=== PATIENT | male | born 1960 | race Caucasian/White ===

== ENCOUNTER 2018-11-07 10:42 | Day surgery (SDC) | payer BC ==
[~2018-11-07 10:42] MED LIST: Acetaminophen TAB* 325 MG PO PRN; Cyclopentolate 1% OPTH.SOL* 2 ML BTL ONE; Ketorolac 0.5% OPHTH (NF) 0.5 % 5 ML BTL ONE; Lidocaine 1%* 5 ML VIAL ONE; Neomycin/Polymy/Dex OPHTH.OIN* 3.5 GM ONE; Phenylephrine 2.5% OPTH.SOL* 2 ML BTL ONE; Povidone Iodine 5% OPTH* 30 ML BTL ONE; Tetracaine 0.5% OPTH.SOL 4 ML* 1 DROP BTL ONE; Tropicamide 1% OPTH.SOL* BTL ONE; acetaZOLAMIDE TAB* 250 MG ONE
[2018-11-07] MEDS ORDERED: Midazolam* 1 MG/ML 2 ML VIAL (2 MG) ONE ×2 (13:38→13:43)
[2018-11-07 14:18] VITALS: BP 134/88
--- NOTE | 2018-11-07 15:55 | OP ---
DATE OF OPERATION: 11/07/2018 - [facility] DATE OF : 1960. SURGEON: John Moya MD ANESTHESIA: Monitored anesthesia care. PREOPERATIVE DIAGNOSIS: Cataract, left eye. POSTOPERATIVE DIAGNOSIS: Cataract, left eye. OPERATIVE PROCEDURE: Extracapsular cataract extraction of the left eye with intraocular lens implant. IMPLANT: SN60WF 22.5 diopter lens to the left eye. COMPLICATIONS: None. DESCRIPTION OF PROCEDURE: The patient was given phenylephrine 2.5 % and cyclopentolate 1% eye drops to the operative eye in the preoperative area. The patient was taken to the operating room where a time-out was taken to identify the correct patient, site, and side of surgery. The patient's left eye was prepped and draped in the usual sterile fashion with 5% Betadine. A second time- out was taken to verify the correct patient, side, and site of surgery, as well as the correct lens implant. A lid speculum was placed to the left eye. A 1mm paracentesis blade was used to make a clear corneal incision. Preservative-free 1% lidocaine was injected into the anterior chamber. DisCoVisc was then injected into the anterior chamber. A 2.75 mm keratome blade was used to make a triplanar incision. A cystotome initiated a capsulorrhexis, which was completed with Utrata forceps in a continuous and curvilinear manner. Hydrodissection of the lens was performed with BSS on a cannula. The lens could be spun in a capsular bag. The phacoemulsification handpiece was used with a divide-and- conquer technique to remove the nucleus. The I/A handpiece then removed the residual cortical lens material. DisCoVisc was injected to inflate the capsular bag. The planned SN60WF 22.5 diopter lens was injected into the capsular bag. The residual DisCoVisc was removed from the eye with the I/A handpiece. The corneal incisions were hydrated and no leaks occurred at physiologic pressure around 20 mmHg per palpation. The lid speculum was removed and drapes were removed. Maxitrol ointment was placed to the surface of the operative eye. An adhesive patch and shield was then placed on the operative eye. The patient was taken to the postoperative area in stable condition. [id number]/[facility] #: [id number] [facility]
== END 2018-11-07 14:28 | disposition home or self-care (01) ==
LOC: OREAST 10:42
PROVIDERS: ATTEND Student in an Organized Health Care Education/Training Program
DX: H25.812 Combined forms of age-related cataract, left eye (principal); I10 Essential (primary) hypertension; E78.2 Mixed hyperlipidemia; K21.9 Gastro-esophageal reflux disease without esophagitis; M19.042 Primary osteoarthritis, left hand; M32.9 Systemic lupus erythematosus, unspecified; Z79.899 Other long term (current) drug therapy; Z96.1 Presence of intraocular lens
CPT/HCPCS: A9270-GY; J2250; V2632

== ENCOUNTER 2019-11-28 06:12 | Inpatient (IN) | payer BC ==
--- NOTE | 2019-11-17 14:13 | HP ---
HISTORY AND PHYSICAL: DATE OF ADMISSION/SURGERY: 11/28/19 DATE OF OFFICE VISIT: 11/17/19 SURGEON: Mariposa Hurd MD.* (DICTATED BY JESSENIA CAMPOS) PROCEDURE: Left total hip arthroplasty. CHIEF COMPLAINT: Left hip pain. HISTORY OF PRESENT ILLNESS: Mr. Mcfarlane is a 58-year-old gentleman with severe end-stage osteoarthritis of the left hip. He has failed conservative treatment and elected to proceed with a left total hip arthroplasty. PAST MEDICAL HISTORY: Hypertension, high cholesterol, gout, and sleep apnea. PAST SURGICAL HISTORY: [place] teeth extraction and cataract removal. CURRENT MEDICATIONS: 1. Fenofibrate 145 mg daily. 2. Magnesium oxide. 3. Benicar/hydrochlorothiazide 20/12.5 mg half a tab every day. 4. Amlodipine 5 mg daily. 5. Metoprolol 50 mg a day. 6. Spironolactone 25 mg half tab daily. 7. Uloric 80 mg a day. 8. Fish oil. 9. Multivitamin. 10. Glucosamine chondroitin 11. Famotidine 20 mg a day. ALLERGIES: No known drug allergies. FAMILY HISTORY: Coronary artery disease. SOCIAL HISTORY: He is a 58-year-old gentleman, lives with his . He does not smoke or use drug or alcohol. REVIEW OF SYSTEMS: A complete 14-point review of systems was reviewed with the patient and was all negative and noncontributory. He denies a history of DVT, PE, hepatitis, HIV, or anesthesia problems. PHYSICAL EXAMINATION GENERAL: He is well developed, well nourished, in no acute distress. VITAL SIGNS: He stands 69 inches tall, weighs 257 pounds. His blood pressure is 132/68, his heart rate is 86. HEENT: Normocephalic, atraumatic. NECK: Supple. No palpable lymph nodes. PULMONARY: Lungs are clear to auscultation bilaterally. CARDIO: Regular rate and rhythm. Strong S1, S2. ABDOMEN: Soft, nontender, nondistended. MUSCULOSKELETAL: Left lower extremity: The skin is intact. There are no open wounds or abrasions. He walks with an antalgic-type gait favoring his left hip. He has decreased internal and external rotation of the left hip. He is able to dorsiflex and plantarflex. He has a 2+ dorsalis pedis pulse and intact sensation. NEUROLOGICAL: He is alert and oriented x3. ASSESSMENT AND PLAN: Mr. Mcfarlane is a 58-year-old gentleman with severe end- stage osteoarthritis of the left hip. He has failed conservative treatment and elected to proceed with a left total hip arthroplasty. The surgery is scheduled for 11/28/[address] Hurd. The risks and benefits of the surgery were reviewed with the patient today and all of his questions were answered. He will follow up with Dr. Hurd 2 weeks after the surgery. JESSENIA CAMPOS [id number]/[facility] #: [id number] [facility]
[~2019-11-28 06:12] MED LIST changes: +Acetaminophen TAB* 325 MG PO ONE; -Acetaminophen TAB* 325 MG PO PRN; +Buffered Lidocaine 1% SYRIN* 1 ML/SYRINGE INTRADERM ONE; -Cyclopentolate 1% OPTH.SOL* 2 ML BTL ONE; +Gabapentin CAP(*) 300 MG PO ONE; -Ketorolac 0.5% OPHTH (NF) 0.5 % 5 ML BTL ONE; +Lactated Ringers 1000 ML Bag* 1,000 ML IV SCH; -Lidocaine 1%* 5 ML VIAL ONE; -Neomycin/Polymy/Dex OPHTH.OIN* 3.5 GM ONE; -Phenylephrine 2.5% OPTH.SOL* 2 ML BTL ONE; -Povidone Iodine 5% OPTH* 30 ML BTL ONE; -Tetracaine 0.5% OPTH.SOL 4 ML* 1 DROP BTL ONE; -Tropicamide 1% OPTH.SOL* BTL ONE; -acetaZOLAMIDE TAB* 250 MG ONE; +celeCOXIB CAP* 200 MG PO ONE
--- OUTSIDE RECORDS SUMMARY | 2019-11-28 06:16 | XMS REPORT | Continuity of Care Document ---
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 Onset: region and thigh Social History Type Date Description Comments Sex Unknown ETOH Use Never used alcohol Tobacco Use Start: Unknown Patient has never smoked Smoking Status Reviewed: 11/17/19 Patient has never smoked Allergies, Adverse Reactions, Alerts Description No Known Drug Allergies Medications Active Medications SIG Qnty Indications Ordering Provider Date Fenofibrate 1 tab by mouth Unknown 145mg Tablets every day Magox 400 1 tab by mouth Unknown 400(241.3mg) mg every day Tablets Benicar HCT 1/2 tab by mouth Unknown 20-12.5mg Tablets every day Amlodipine Besylate Take One Tablet Unknown 5mg By Mouth Every Tablets Day Metoprolol Succinate ER Take One Tablet Unknown 50mg By Mouth Every Tablets ER 24HR Day Spironolactone Take One Half Unknown 25mg Tablets Tablet By Mouth Once Daily Uloric 1 tab by mouth Unknown 80mg Tablets every day Fish Oil 1 tab by mouth Unknown 1000mg Capsules every morning One Daily For Men 50+ 1 tab by mouth Unknown Advanced once daily Men 50+ Tablets Glucosamine Chondroitin 1 tab by mouth Unknown 1500 Complex twice daily 1500Com Capsules Famotidine 1 tab by mouth Unknown 20mg Tablets daily Immunizations Description No Information Available Vital Signs Date Vital Result Comment 11/17/2019 1:11pm Height 69 inches 5'9" Weight 257.00 lb Heart Rate 86 /min BP Systolic 132 mmHg BP Diastolic 68 mmHg Respiratory Rate 16 /min Body Temperature 98.2 F Pain Level 7 O2 % BldC Oximetry 98 % BMI (Body Mass Index) 37.9 kg/m2 10/20/2019 1:28pm Height 69 inches 5'9" Weight 250.00 lb Heart Rate 87 /min BP Systolic Sitting 148 mmHg BP Diastolic Sitting 80 mmHg Respiratory Rate 16 /min Pain Level 10 O2 % BldC Oximetry 96 % BMI (Body Mass Index) 36.9 kg/m2 Results Description No Information Available Procedures Description No Information Available Medical Devices Description No Information Available Encounters Type Date Location Provider Dx Diagnosis Office Visit 10/20/2019 [facility] Mariposa Hurd M25.552 Pain in left hip 1:30p at [place] [facility] M16.12 Unilateral primary osteoarthritis, left hip Assessments Date Code Description Provider 11/17/2019 M25.552 Pain in left hip JESSENIA Martinez 11/17/2019 M16.12 Unilateral primary osteoarthritis, left hip JESSENIA Martinez 10/20/2019 M25.552 Pain in left hip Mariposa Hurd M.D. 10/20/2019 M16.12 Unilateral primary osteoarthritis, left hip Mariposa Hurd M.D. Plan of Treatment Future Appointment(s):12/12/2019 11:30 am - JESSENIA Martinez at [facility] at Dyflli0211/28/2019 4:30 pm - Marc Carvajal PA-C at [facility] at Knjwov2311/28/2019 4:30 pm - JESSENIA Martinez at [facility] at Fjkszf9611/28/2019 4:30 pm - Mariposa Hurd M.D. at [facility] at Gcbktw0111/17/2019 - July Bowen PAM25.552 Pain in left hipFollow up:Follow up: 2 weeks after yvpshggF93.12 Unilateral primary osteoarthritis, left hip Functional Status Description No Information Available Mental Status Description No Information Available Referrals Description No Information Available
--- OUTSIDE RECORDS SUMMARY | 2019-11-28 06:16 | XMS REPORT | Continuity of Care Document ---
:1960 Author Organization [facility] Care Team Providers Name Role Phone MONICA REED Admitting Physician MONICA REED Attending Physician Allergies and Intolerances No Known Drug Allergies Medications RxNorm Medication Dose Route Instructions Start End Date Status Date Azithromycin (Take 2 Active tablets po on day one then one tablet a day for the next 4 days.) 526580 benzonatate 200 MG Oral 200 mg oral orally every 8 Active Capsule hours as needed. (10 days) (as needed for cough) 302168 febuxostat 80 MG Oral 80 mg oral orally every day Active Tablet 944319 Hydrochlorothiazide 12.5 1 tab oral orally every day Active MG / Olmesartan medoxomil 40 MG Oral Tablet 844816 Hydroxychloroquine 200 mg oral orally 2 times Active Sulfate 200 MG Oral per day Tablet 030821 Metoprolol Tartrate 50 50 mg oral orally every day Active MG Oral Tablet 9143 Ranitidine 150 mg oral orally every day Active 9997 Spironolactone 12.5 mg oral orally every Active morning Medications At Time Of Discharge RxNorm Medication Dose Route Instructions Start End Date Status Date Azithromycin (Take 2 Active tablets po on day one then one tablet a day for the next 4 days.) 840540 benzonatate 200 MG Oral 200 mg oral orally every 8 Active Capsule hours as needed. (10 days) (as needed for cough) 243707 febuxostat 80 MG Oral 80 mg oral orally every day Active Tablet 574448 Hydrochlorothiazide 12.5 1 tab oral orally every day Active MG / Olmesartan medoxomil 40 MG Oral Tablet 863587 Hydroxychloroquine 200 mg oral orally 2 times Active Sulfate 200 MG Oral per day Tablet 556752 Metoprolol Tartrate 50 50 mg oral orally every day Active MG Oral Tablet 9143 Ranitidine 150 mg oral orally every day Active 9997 Spironolactone 12.5 mg oral orally every Active morning Problems Code Code System Problem Name Start Date End Date Status 44838790 SNOMED-CT Heart disease 2000 Active 93449232 SNOMED-CT Hypertensive disorder 2001 Active 82243556 SNOMED-CT Hypercholesterolemia 2000 Active Procedures No data in the system Results Laboratory Results Order: BASIC METABOLIC PANEL Specimen Source: Body Site: Legend: (G,H) = High, (GG,HH,CH,#H) = Above High Threshold, ( #,L) = Low, (##,CL,#L,LL) = Below Low Threshold, (C,CC,CA,#A,A) = Abnormal LOINC Test Result Flag Range Units Date 1SODIUM 139 136-145 mmol/L 10/06/2019 09:17 1POTASSIUM 4.4 3.5-5.2 mmol/L 10/06/2019 09:17 1CHLORIDE 105 100-108 mmol/L 10/06/2019 09:17 1CO2 25 21-32 mmol/L 10/06/2019 09:17 1GLUCOSE 91 70-100 mg/dL 10/06/2019 09:17 1BUN 39 H 7-21 mg/dL 10/06/2019 09:17 1CREATININE 1.2 0.6-1.3 mg/dL 10/06/2019 09:17 Interpretive Chelsie: 1Normal Kidney Function or Mild Disease - GFR >OR= 60 Chronic Kidney Disease - GFR 15-59 Renal Failure - GFR < 15 GFR not calculated on patients under 18 years of age. Calculated (estimated) GFR is based on the MDRD Study equation, which assumes a steady state for creatinine. Estimated GFR may not be appropriate for medication dosing. 1CALCIUM 10.0 8.5-10.8 mg/dL 10/06/2019 09:17 1GFR >60 10/06/2019 09:17 Performing Lab Footnotes:[facility] - [id number] - [address] [place] [address] STEPHANIE SANCHEZD1 Order: PSA Specimen Source: Body Site: Legend: (G,H) = High, (GG,HH,CH, #H) = Above High Threshold, (#,L) = Low, (##,CL,#L,LL) = Below Low Threshold, (C ,CC,CA,#A,A) = Abnormal LOINC Test Result Flag Range Units Date 1PSA 0.38 0.03-4.00 ng/mL 10/06/2019 09:17 Interpretive Chelsie: 1. [place] Alteration Worker Chemiluminescent Immunoassay Do NOT use interchangeably with other methods. NOT to be used as a Cancer Screening NOR as a guide in Disease Staging. Performing Lab Footnotes:[facility] - [id number] - [address] [place] [address] STEPHANIE SERRANOOMD1 Order: URIC ACID Specimen Source: Body Site: Legend: (G,H) = High, (GG, HH,CH,#H) = Above High Threshold, (#,L) = Low, (##,CL,#L,LL) = Below Low Threshold, (C,CC,CA,#A,A) = Abnormal LOINC Test Result Flag Range Units Date 1URIC ACID 6.2 2.6-7.2 mg/dL 10/06/2019 09:17 Performing Lab Footnotes:[facility] - [id number] - [address] [place] [address] STEPHANIE SERRANOOMRodrick Social History Code Code System Social History Description Dates Observed Observation 468978707 SNOMED CT Current Smoking Unknown if ever Status smoked UNK AdministrativeGender Sex Assigned At Unknown Vital Signs No data in the system Goals Section No data in the system Health Concerns No data in the systemEncounter Diagnosis Date Code Code System Diagnosis Status I10 ICD10 ESSENTIAL PRIMARY HYPERTENSION Active Advance Directives *RHIO - CONSENT IS YES Directive Type Effective Date Assessor Notes Supporting Document Name Address Phone No Directive Type 12/14/2016 Not Specified Not Specified Not Specified None No specified 10:59:27 AM Encounters Encounter Diagnosis Location Date ESSENTIAL PRIMARY HYPERTENSION [facility] 10/06/2019 Family History Patient has no knowledge of family history Functional Status No data in the system Immunizations Vaccine Code Code System Vaccine Name Date Status UTD PER PT Completed INFLUENZA- 2014 Completed Medical Equipment No data in the system Mental Status No data in the system Assessment and Plan Assessments No data in the systemPlan Of Treatment No data in the systemPending Tests No data in the system Hospital Discharge Instructions No data in the system Reason for Visit No data in the system
--- OUTSIDE RECORDS SUMMARY | 2019-11-28 06:16 | XMS REPORT | Continuity of Care Document ---
:1960 External Reference #:[id number] Author Name JESSENIA Martinez (transmitted by agent of provider Farideh Ramos) Address [address] [place] [address] Care Team Providers Name Role Phone Gilmer Sears MD - Internal Medicine Care Team Information Hospice Massage Therapist Problems Active Problems Provider Date Localized, primary osteoarthritis of the pelvic Mariposatanya Hurd M.D. Onset: region and thigh Social [...] BMI (Body Mass Index) 36.9 kg/m2 Results Test Acquired Date Facility Test Result H/L Range Note Urinalysis Profile 11/17/2019 [facility] Urine Color Yellow [address] [place] [address] [phone] Urine Appearance Clear Urine Specific [place] 1.014 Normal 1.010-1.030 Urine pH 6.0 Normal 5-9 Urine Urobilinogen Negative Negative Urine Ketones Negative Negative Urine Protein Negative Negative Urine Leukocytes Negative Negative Urine Blood Negative Negative Urine Nitrite Negative Negative Urine Bilirubin Negative Negative Urine Glucose Negative Negative Inr/Protime 11/17/2019 [facility] Inr 1.23 High 0.82-1.[address] [place] [address] [phone] Laboratory test 11/17/2019 [facility] Partial 38.4 High 26.0- 38.[address] [address] Time PTT [phone] CBC Auto Diff 11/17/2019 [facility] White Blood 10.3 Normal 3.5-10.[address] Count 10^3/uL [place], [place] [address] [phone] Red Blood Count 4.40 10^6/uL Normal 4.18-5.48 Hemoglobin 14.8 g/dL Normal 14.0-18.0 Hematocrit 42 % Normal 42-52 Mean Corpuscular Volume 95 fL High 80-94 Mean Corpuscular Hemoglobin 34 pg High 27-31 Mean Corpuscular HGB Conc 35 g/dL Normal 31-36 Red Cell Distribution Width 14 % Normal 10-15 Platelet Count 218 10^3/uL Normal 150-450 Mean Platelet Volume 8.6 fL Normal 7.4-10.4 Abs Neutrophils 7.7 10^3/uL Normal 1.5-7.7 Abs Lymphocytes 1.9 10^3/uL Normal 1.0-4.8 Abs Monocytes 0.6 10^3/uL Normal 0-0.8 Abs Eosinophils 0.1 10^3/uL Normal 0-0.6 Abs Basophils 0.0 10^3/uL Normal 0-0.2 Abs Nucleated RBC 0.0 10^3/uL Granulocyte % 75.0 % Lymphocyte % 18.3 % Monocyte % 5.5 % Eosinophil % 0.8 % Basophil % 0.4 % Nucleated Red Blood Cells % 0.0 Comp Metabolic 11/17/2019 [facility] Sodium 138 mmol/L Normal 135-[address] [place] [address] [phone] Potassium 4.0 mmol/L Normal 3.5-5.0 Chloride 103 mmol/L Normal 101-111 Co2 Carbon Dioxide 25 mmol/L Normal 22-32 Anion Gap 10 mmol/L Normal 2-11 Glucose 81 mg/dL Normal 70-100 Blood Urea Nitrogen 44 mg/dL High 6-24 Creatinine 1.35 mg/dL High 0.67-1.17 BUN/Creatinine Ratio 32.6 High 8-20 Calcium 10.5 mg/dL High 8.6-10.3 Total Protein 8.0 g/dL Normal 6.4-8.9 Albumin 4.9 g/dL Normal 3.2-5.2 Globulin 3.1 g/dL Normal 2-4 Albumin/Globulin Ratio 1.6 Normal 1-3 Total Bilirubin 0.50 mg/dL Normal 0.2-1.0 Alkaline Phosphatase 57 U/L Normal 34-104 Alt 21 U/L Normal 7-52 Ast 20 U/L Normal 13-39 Egfr Non- 53.9 >60 Egfr 65.2 >60 2 Type & Screen 11/17/2019 [facility] Patient Blood Type O Positive [address] [place] [address] [phone] Antibody Screen NEGATIVE Urine Culture And 11/17/2019 [facility] Urine Culture SEE RESULT [address] [place] [address] [phone] 1 Standard intensity warfarin therapeutic range: 2.0-3.0 High intensity warfarin therapeutic range: 2.5-3.5 2 Because ethnic data is not always readily available, this report includes an eGFR for both -Americans and non- Americans. The National Kidney Disease Education Program (NKDEP) does not endorse the use of the MDRD equation for patients that are not between the ages of 18 and 70, are , have extremes of body size, muscle mass, or nutritional status, or are non- or non-. According to the National Kidney Foundation, irrespective of diagnosis, the stage of the disease is based on the level of kidney function: Stage Description GFR(mL/min/1.73 m(2)) 1 Kidney damage with normal or decreased GFR 90 2 Kidney damage with mild decrease in GFR 60-89 3 Moderate decrease in GFR 30-59 4 Severe decrease in GFR 15-29 5 Kidney failure <15 (or dialysis) 3 SEE RESULT BELOW Name: RON MCFARLANE : [address]: Mariposa Hurd MD Acct: [id number] Unit: [id number] AGE: 58 Location: [facility] Re11/17/19 SEX: M Status: REG REF SPEC: [id number] STALIN: 11/17/19-[address]: Mariposa Hurd MD REQ: [id number] RECD: 02/28/20-1616 STATUS: CINDI HALL DR: Gilmer Sears MD _ SOURCE: URINE SPDESC: ORDERED: Urine Culture QUERIES: Urine Source: Clean Catch Procedure Result Reported Site Urine Culture Final 11/18/19- 1521 ML No Growth (<1,000 CFU/mL) * ML - Main Lab . END OF REPORT DEPARTMENT OF PATHOLOGY, [address] [place] [address] Live Corcoran M.D. Director [facility] # [id number] Procedures Description No Information Available Medical Devices Description No Information Available Encounters Type Date Location Provider Dx Diagnosis Office Visit 10/20/2019 [facility] Mariposa Hurd, M25.552 Pain in left hip 1:30p at [facility] M16.12 Unilateral primary osteoarthritis, left hip Assessments Date Code Description Provider 11/17/2019 M25.552 Pain in left hip JESSENIA Martinez 11/17/2019 M16.12 Unilateral primary osteoarthritis, left hip JESSENIA Martinez 10/20/2019 M25.552 Pain in left hip Mariposa Hurd M.D. 10/20/2019 M16.12 Unilateral primary osteoarthritis, left hip Mariposa Hurd M.D. Plan of Treatment Future Appointment(s):12/12/2019 11:30 am - JESSENIA Martinez at [facility] at Focqac0611/28/2019 4:30 pm - Marc Carvajal PA-C at [facility] at Dyxkam2311/28/2019 4:30 pm - JESSENIA Martinez at [facility] at [place]9611/28/2019 4:30 pm - Mariposa Hurd M.D. at [facility] at E[place]had7511/17/2019 - July Bowen PAM25.552 Pain in left hipFollow up:Follow up: 2 weeks after qrjcyokG49.12 Unilateral primary osteoarthritis, left hip Functional Status Description No Information Available Mental Status Description No Information Available Referrals Description No Information Available
--- OUTSIDE RECORDS SUMMARY | 2019-11-28 06:16 | XMS REPORT | Continuity of Care Document ---
:1960 External Reference #:[id number] Author Name Daniela Astudillo M.D. Address [address] [place] [id number] Care Team Providers Name Role Phone Gilmer Reyes M.D. - Internal Care Team Information Director Learning Services [phone] Medicine Problems Active Problems Provider Date Impaired renal function disorder Daniela Astudillo M.D. Onset: 04/01/2016 Disorder of connective tissue Daniela Astudillo M.D. Onset: 09/03/2015 Hypertensive heart disease without heart Daniela Astudillo M.D. 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 Onset: 06/18/2014 Gout Daniela Astudillo M.D. Onset: 09/05/2013 FH: Cardiovascular disease Daniela Astudillo M.D. Onset: 07/21/2011 Obesity Daniela Astudillo M.D. Onset: 07/21/2011 Hyperlipidemia Daniela Astudillo M.D. 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 Smoking Status Reviewed: 11/10/19 Patient has never smoked CHEWS TOBACCO DAILY. Allergies, Adverse Reactions, Alerts Description No Known Drug Allergies Medications Active Medications SIG Qnty Indications Ordering Date Provider Uloric 2 tablets [facility] 11/10/2019 40mg Tablets everyday M., M.D. Fenofibrate 1 by mouth every 90tabs [facility] 06/23/2019 145mg Tablets day M., M.D. Magox 400 1 by mouth every 90tabs [facility] 06/20/2019 400(241.3mg) mg day M., M.D. Tablets Benicar HCT 1/ 2 tablet by 45tabs [facility] 06/22/2018 20-12.5mg mouth every day M., M.D. Tablets Metoprolol Succinate ER take one tablet 90tabs Felk[facility] 11/19/2014 by mouth every MD 50mg Tablets ER 24HR day Spironolactone 1/2 po qd 45tabs [facility] 02/03/2012 25mg Tablets M., M.D. Fish Oil 1 cap by mouth Unknown 1000mg Capsules every day One Daily For Men 50+ 1 PO qd Unknown Advanced Men 50+ Tablets Glucosamine Chondroitin 1 PO bid Unknown 1500 Complex 1500Com Capsules Amlodipine Besylate 1 by mouth every Unknown 5mg day Tablets Famotidine 1 by mouth every Unknown 20mg Tablets day Immunizations CPT Code Status Date Vaccine Lot # [id number] Given 06/13/2019 Flu Vaccine 54944 Given 06/10/2017 Flu Vaccine 03648 Given 05/29/2016 Flu Vaccine 54236 Given 06/07/2015 Flu Vaccine Vital Signs Date Vital Result Comment 11/10/2019 2:21pm BP Systolic 122 mmHg BP Diastolic 60 mmHg Heart Rate 83 /min Respiratory Rate 18 /min Height 69 inches 5'9" Weight 263.00 lb O2 % BldC Oximetry 95 % BMI (Body Mass Index) 38.8 kg/m2 BSA (Body Surface Area) 2.32 m2 07/19/2019 8:04am BP Systolic 132 mmHg BP Diastolic 80 mmHg Heart Rate 89 /min Respiratory Rate 20 /min Height 69 inches 5'9" Weight 252.00 lb O2 % BldC Oximetry 95 % BMI (Body Mass Index) 37.2 kg/m2 BSA (Body Surface Area) 2.28 m2 BP Systolic Sitting 132 mmHg BP Diastolic Sitting 80 mmHg BP Systolic Lying Down 130 mmHg BP Diastolic Lying Down 78 mmHg BP Systolic Standing 140 mmHg BP Diastolic Standing 84 mmHg Results Test Acquired Date Facility Test Result H/L Range Note .Regular - CBC,BMP,Mag 08/22/2019 [facility] Magnesium 1.7 mg/dL 1.7-2.6 CBC W/Auto Differential 08/22/2019 [facility] WBC 8.7 K/uL 4.8-10.8 RBC 4.12 M/uL Low 4.60-6.20 Hemoglobin 13.7 gm/dL 13.5-18.0 Hematocrit 39.2 % Low 41.0-53.0 MCV 95.1 fL 80.0-100.0 MCHC 35.1 % 30.0-36.5 MCH 33.4 pg 27.0-34.0 RDW 12.4 % 11.0-15.0 Platelet 271 K/uL 130-450 MPV 7.3 fL 6.0-12.0 NE% 71 % 37-80 Ly% 21 % 10-50 Mo% 4 % 0-12 Eo% 1 % <=8 Ba% 2 % <=3 NE# 6.2 K/uL 1.8-8.6 Lymph# 1.8 K/uL 0.5-5.0 Grady# 0.4 K/uL 0.0-1.3 Eos# 0.1 K/uL 0.0-0.9 Baso# 0.2 K/ul 0.0-0.3 Basic Metabolic Panel 08/22/2019 [facility] Sodium 140 mmol/L 136-145 Potassium 4.1 mmol/L 3.5-5.2 Chloride 105 mmol/L 100-108 Co2 25 mmol/L 21-32 Glucose 77 mg/dL 70-100 BUN 33 mg/dL High 7-21 Creatinine 1.3 mg/dL 0.6-1.3 1 Calcium 10.1 mg/dL 8.5-10.8 GFR 55 Lipid Panel 08/22/2019 [facility] Cholesterol 130 mg/dL 120-200 Triglycerides 89 mg/dL 0-149 HDL Cholesterol 32 mg/dL Low 40-60 Chol/HDL Ratio 4.1 <=4.9 2 LDL Direct 82 mg/dL 0-99 VLDL Calculated 18 Hepatic Funct Panel 08/22/2019 [facility] T Protein 7.9 gm/dL 6.4-8.2 Albumin 4.4 gm/dL 3.2-4.6 T Bili 0.5 mg/dL 0.0-1.2 Direct Bili 0.3 mg/dL 0.0-0.3 Alk Phos 66 U/L 40-150 Alt (SGPT) 20 U/L 0-55 Ast (Sgot) 25 U/L 5-37 .Regular - CBC,BMP,Mag 06/20/2019 [facility] Magnesium 1.6 mg/dL Low 1.7-2.6 CBC W/Auto Differential 06/20/2019 [facility] WBC 7.5 K/uL 4.8-10.8 RBC 3.93 M/uL Low 4.60-6.20 Hemoglobin 13.0 gm/dL Low 13.5-18.0 Hematocrit 39.0 % Low 41.0-53.0 MCV 99.3 fL 80.0-100.0 MCHC 33.3 % 30.0-36.5 MCH 33.1 pg 27.0-34.0 RDW 11.5 % 11.0-15.0 Platelet 228 K/uL 130-450 MPV 7.6 fL 6.0-12.0 NE% 69 % 37-80 Ly% 24 % 10-50 Mo% 6 % 0-12 Eo% 1 % <=8 Ba% 0 % <=3 NE# 5.1 K/uL 1.8-8.6 Lymph# 1.8 K/uL 0.5-5.0 Grady# 0.4 K/uL 0.0-1.3 Eos# 0.1 K/uL 0.0-0.9 Baso# 0.0 K/ul 0.0-0.3 Basic Metabolic Panel 06/20/2019 [facility] Sodium 139 mmol/L 136-145 Potassium 4.4 mmol/L 3.5-5.2 Chloride 106 mmol/L 100-108 Co2 25 mmol/L 21-32 Glucose 95 mg/dL 70-100 BUN 23 mg/dL High 7-21 Creatinine 1.1 mg/dL 0.6-1.3 3 Calcium 9.9 mg/dL 8.5-10.8 GFR >60 Lipid Panel 06/20/2019 [facility] Cholesterol 154 mg/dL 120-200 Triglycerides 98 mg/dL 0-149 HDL Cholesterol 28 mg/dL Low 40-60 Chol/HDL Ratio 5.5 High <=4.9 4 LDL Direct 94 mg/dL 0-99 VLDL Calculated 20 Hepatic Funct Panel 06/20/2019 [facility] T Protein 7.6 gm/dL 6.4-8.2 Albumin 4.2 gm/dL 3.2-4.6 T Bili 0.5 mg/dL 0.0-1.2 Direct Bili 0.2 mg/dL 0.0-0.3 Alk Phos 85 U/L 40-150 Alt (SGPT) 28 U/L 0-55 Ast (Sgot) 27 U/L 5-37 1 Normal Kidney Function or Mild Disease - GFR >OR= 60 Chronic Kidney Disease - GFR 15-59 Renal Failure - GFR < 15 GFR not calculated on patients under 18 years of age. 2 Cholesterol/HDL Ratio Interpretation Risk : 1/2 Avg Avg 2x Avg 3x Avg Male : 3.43 4.97 9.50 23.99 Female : 3.27 4.44 7.05 11.04 3 Normal Kidney Function or Mild Disease - GFR >OR= 60 Chronic Kidney Disease - GFR 15-59 Renal Failure - GFR < 15 GFR not calculated on patients under 18 years of age. 4 Cholesterol/HDL Ratio Interpretation Risk : 1/2 Avg Avg 2x Avg 3x Avg Male : 3.43 4.97 9.50 23.99 Female : 3.27 4.44 7.05 11.04 Procedures Date Code Description Status 11/10/2019 20005 Electrocardiogram Complete Completed 07/19/2019 52230 Cardiovascular Stress Test W/Interpretation & Report Completed 07/19/2019 66186 Nuclear Imaging Myocardial Mult Studies Incl Wall Completed Motion/Ef 06/23/2019 08147 Electrocardiogram Complete Completed Medical Devices Description No Information Available Encounters Type Date Location Provider Dx Diagnosis Office Visit 11/10/2019 Daniela [facility] Z01.810 Encounter for 2:30p Heidi Garner preprocedural cardiovascular examination I11.9 Hypertensive heart disease without heart failure E78.5 Hyperlipidemia, unspecified I50.1 Left ventricular failure, unspecified M15.0 Primary generalized (osteo)arthritis N25.9 Disorder 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 unspecified I11.9 Hypertensive heart disease without heart failure I50.1 Left ventricular failure, unspecified M15.0 Primary generalized (osteo)arthritis L94.9 Localized connective tissue disorder, unspecified N25.9 [facility] Date Code Description Provider 11/10/2019 Z01.810 Preoperative cardiovascular examination Daniela Astudillo M.D. 11/10/2019 I11.9 Hypertensive heart disease without Daniela Astudillo M.D. heart failure 11/10/2019 E78.5 Hyperlipidemia, unspecified Daniela Astudillo M.D. 11/10/2019 I50.1 Left ventricular failure, unspecified Daniela Astudillo M.D. 11/10/2019 M15.0 Primary generalized (osteo)arthritis Daniela Astudillo M.D. 11/10/2019 N25.9 Disorder resulting from impaired renal Daniela Astudillo M.D. tubular function, unspecified 11/10/2019 L94.9 Localized connective tissue disorder, Daniela Astudillo M.D. unspecified 07/19/2019 I50.1 Left ventricular failure, unspecified Daniela Astudillo M.D. 07/19/2019 I50.1 Left ventricular failure, unspecified Stress ECHO/Nuclear Stress 07/19/2019 R06.02 Shortness of breath Daniela Astudillo M.D. 07/19/2019 R06.02 Shortness of breath Stress ECHO/Nuclear Stress 07/19/2019 E78.5 Hyperlipidemia, unspecified Daniela Astudillo M.D. 07/19/2019 E78.5 Hyperlipidemia, unspecified Stress ECHO/Nuclear Stress 07/19/2019 I11.9 Hypertensive heart disease without Daniela Astudillo M.D. heart failure 07/19/2019 I11.9 Hypertensive heart disease without Stress ECHO/Nuclear Stress heart failure 07/19/2019 L94.9 Localized connective tissue disorder, Stress ECHO/Nuclear Stress unspecified 07/19/2019 R07.2 Precordial pain Stress ECHO/Nuclear Stress 06/23/2019 E78.5 Hyperlipidemia, unspecified Daniela Astudillo M.D. 06/23/2019 I11.9 Hypertensive heart disease without Daniela Astudillo M.D. heart failure 06/23/2019 I50.1 Left ventricular failure, unspecified Daniela Astudillo M.D. 06/23/2019 M15.0 Primary generalized (osteo)arthritis Daniela Astudillo M.D. 06/23/2019 L94.9 Localized connective tissue disorder, Daniela Astudillo M.D. unspecified 06/23/2019 N25.9 Disorder resulting from impaired renal Daniela Astudillo M.D. tubular function, unspecified Plan of Treatment Future Appointment(s):04/17/2020 9:30 am - Daniela Astudillo M.D. at [id number] - Daniela Astudillo M.D.Z01.810 Encounter for preprocedural cardiovascular ipgspxpmpcoL71.9 Hypertensive heart disease without heart fbgpdfeU62.5 Hyperlipidemia, jyzaddahfssB66.1 Left ventricular failure, sntgwpbklvgT70.0 Primary generalized (osteo)vvxepghajL54.9 Disorder rslt from impaired renal tubular function, unspL94.9 Localized connective tissue disorder , unspecifiedRecommendations:Recommendations: 1. Based on comprehensive clinical review and evaluation patient appears to be generally doing well without any acute decompensation and is expected to tolerate the planned surgery/procedure with acceptable mildly increased risk. 2. Patient currently on appropriate, optimized medical therapy for cardiac conditions. . His blood pressures are well controlled on current maintenance medications. . Chronic diastolic congestive heart failure treated appropriately and compensatedon beta- blockers, angiotensin receptor blockers and diuretics. . Lipids are satisfactory on fibrates and was intolerant statin therapy. 3. Potential cardiac risks were reviewed to the patient, including but not limited to development of acute coronary syndrome, cardiac dysrhythmias, and fluctuationof blood pressures, heart failure and in rare cases resulting in . 4. I advised the patient to follow the instructions of anesthesiologist/ treating surgeon in preparation for planned surgical procedure. 5. On the day of surgery , advised to take these following medications with a sip of water early in the morning before going to the hospital/surgical center and any other specific instructions given by treating surgeon-anesthesiologist. 6. Patients last available lipid profile values reviewed.Total cholesterol, HDLc, LDLc and TRG's are quite satisfactory and at target goal . Continuation of present lipid lowering medical therapy along with dietary changes with total reduced calories / low insaturated fats / trans fats / low in chol (300mg) as per NCEP/ AHA/ACC guidelines is recommended. I also reviewed current lipids meds, dosing and side effects. Requested to have Lipid profile, LFT's atintervals of 4-6months. 7.Patient educated in recognizing signs and symptoms heart failure ( Such as SOB / VELAZQUEZ, Fluid overload/ tissue edema/ PND) and reporting for prompt evaluation and adjustment in therapy. Reviewed current therapy for CHF, dosing schedule and all common side effects. Dietary changes with reduced salt, smaller meals portions, balanced calories to maintain healthy weight. Moderate symptom limited physical activity and taking all prescribed meds as advised and checking daily weights / tracking changes and understanding volume overload status. We also discussed proactive management for signs and symptoms of fluid overload and taking additional dose of diuretic/ water pill and communicating with us. In case of acute , severe symptoms SOB to call 911 services for immediate attention at nearby ER. 8. .Patient's blood pressure readings are in normal , controlled range. Reviewed current anti hypertensive medical regimen , taking & tolerating well without any side effects. Emphasized on combined efforts with dietary modification with low salt (2gms Na), moderate regular exercise ( age appropriate) and maintaining healthy weight. 9. Encouraged to call us with any questions and concerns regarding my care for his cardiovascular problems, therapeutic concern or develops any side effects with cardiac medications. As always in case of sudden change in clinical status ordevelops any acute symptoms to call and seek prompt medical help using 911 services going to the nearest emergency room for prompt concurrent evaluation and appropriate treatment. DR. JULIEN: Pleasefeel free to call us if any questions regarding this consultation or if you need any additional information from us. . I will not be able to see or follow Mr. Mcfarlane while he is in [facility], suggest to have a local counter caser and if necessary a hypoid gear tester to follow along and assist you in his care for medical and cardiac issues. - . Close monitoring perioperative and postoperative period for development of any decompensation of heart failure , cardiac dysrhythmias and any acute ischemic symptoms. 10. DVT prophylaxis postoperatively as per current orthopedic guidelines. Functional Status Description No Information Available Mental Status Description No Information Available Referrals Refer to Reason for Referral Status Appt Date Daniela Astudillo M.D. Created [address] [place] [address] [phone]
--- OUTSIDE RECORDS SUMMARY | 2019-11-28 06:16 | XMS REPORT | Continuity of Care Document ---
:1960 Author Organization [facility] Care Team Providers Name Role Phone FREEMAN REED Primary Care Physician Allergies and Intolerances No Known Drug Allergies Medications RxNorm Medication Dose Route Instructions Start End Date Status Date Azithromycin (Take 2 Active tablets po on day one then one tablet a day for the next 4 days.) 968731 benzonatate 200 MG Oral 200 mg oral orally every 8 Active Capsule hours as needed. (10 days) (as needed for cough) 868942 febuxostat 80 MG Oral 80 mg oral orally every day Active Tablet 899936 Hydrochlorothiazide 12.5 1 tab oral orally every day Active MG / Olmesartan medoxomil 40 MG Oral Tablet 661354 Hydroxychloroquine 200 mg oral orally 2 times Active Sulfate 200 MG Oral per day Tablet 124735 Metoprolol Tartrate 50 50 mg oral orally [...] a day for the next 4 days.) 022261 benzonatate 200 MG Oral 200 mg oral orally every 8 Active Capsule hours as needed. (10 days) (as needed for cough) 108518 febuxostat 80 MG Oral 80 mg oral orally every day Active Tablet 433889 Hydrochlorothiazide 12.5 1 tab oral orally every day Active MG / Olmesartan medoxomil 40 MG Oral Tablet 390497 Hydroxychloroquine 200 mg oral orally 2 times Active Sulfate 200 MG Oral per day Tablet 854980 Metoprolol Tartrate 50 50 mg oral orally every day Active MG Oral Tablet 9143 Ranitidine 150 mg oral orally every day Active 9997 Spironolactone 12.5 mg oral orally every Active morning Problems Code Code System Problem Name Start Date End Date Status 25335274 SNOMED-CT Heart disease 2001 Active 73997165 SNOMED-CT Hypertensive disorder 2001 Active 11500840 SNOMED-CT Hypercholesterolemia 2000 Active Procedures No data in the system Results Laboratory Results Order: CBC DIFF Specimen Source: Body Site : Legend: (G,H) = High, (GG,HH,CH,#H) = Above High Threshold, (#,L) = Low, (##, CL,#L,LL) = Below Low Threshold, (C,CC,CA,#A,A) = Abnormal LOINC Test Result Flag Range Units Date 1WBC 7.8 4.8-10.8 K/uL 11/15/2019 09:55 1RBC 4.65 4.60-6.20 M/uL 11/15/2019 09:55 1HEMOGLOBIN 15.2 13.5-18.0 gm/dL 11/15/2019 09:55 1HEMATOCRIT 45.7 41.0-53.0 % 11/15/2019 09:55 1MCV 98.4 80.0-100.0 fL 11/15/2019 09:55 1MCHC 33.2 30.0-36.5 % 11/15/2019 09:55 1MCH 32.6 27.0-34.0 pg 11/15/2019 09:55 1RDW 12.6 11.0-15.0 % 11/15/2019 09:55 1PLATELET 217 130-450 K/uL 11/15/2019 09:55 1MPV 7.9 6.0-12.0 fL 11/15/2019 09:55 1NE% 71 37-80 % 11/15/2019 09:55 1LY% 22 10-50 % 11/15/2019 09:55 1MO% 5 0-12 % 11/15/2019 09:55 1EO% 1 <=8 % 11/15/2019 09:55 1BA% 0 <=3 % 11/15/2019 09:55 1NE# 5.5 1.8-8.6 K/uL 11/15/2019 09:55 1LYMPH# 1.7 0.5-5.0 K/uL 11/15/2019 09:55 1MONO# 0.4 0.0-1.3 K/uL 11/15/2019 09:55 1EOS# 0.1 0.0-0.9 K/uL 11/15/2019 09:55 1BASO# 0.0 0.0-0.3 K/ul 11/15/2019 09:55 Performing Lab Footnotes:[facility] - [id number] - [address] [place] [address] STEPHANIE SERRANOOMD1 Order: FERRITIN Specimen Source: Body Site: Legend: (G,H) = High, (GG, HH,CH,#H) = Above High Threshold, (#,L) = Low, (##,CL,#L,LL) = Below Low Threshold, (C,CC,CA,#A,A) = Abnormal LOINC Test Result Flag Range Units Date 1FERRITIN 454 H 26-388 ng/mL 11/15/2019 09:55 Performing Lab Footnotes:[facility] - [id number] - [address] [place] [address] STEPHANIE SERRANOOMD1 Order: HEPATIC FUNCT PANEL Specimen Source: Body Site: Legend: (G,H) = High, (GG,HH,CH,#H) = Above High Threshold, (#,L) = Low, (##,CL,#L,LL) = Below Low Threshold, (C,CC,CA,#A,A) = Abnormal LOINC Test Result Flag Range Units Date 1T PROTEIN 7.9 6.4-8.2 gm/dL 11/15/2019 09:55 1ALBUMIN 4.6 3.2-4.6 gm/dL 11/15/2019 09:55 1T BILI 0.6 0.0-1.2 mg/dL 11/15/2019 09:55 1DIRECT BILI 0.3 0.0-0.3 mg/dL 11/15/2019 09:55 1ALK PHOS 62 40-150 U/L 11/15/2019 09:55 1ALT (SGPT) 25 0-55 U/L 11/15/2019 09:55 1AST (SGOT) 25 5-37 U/L 11/15/2019 09:55 Performing Lab Footnotes:[facility] - [id number] - [address] [place] [address] STEPHANIE SERRANOOMD1 Order: IRON & IRON (Transferrin%) SATURATION Specimen Source: Body Site: Legend: (G,H) = High, (GG,HH,CH,#H) = Above High Threshold, (#,L) = Low, ( ##,CL,#L,LL) = Below Low Threshold, (C,CC,CA,#A,A) = Abnormal LOINC Test Result Flag Range Units Date 1IRON 109 50-175 ug/dL 11/15/2019 09:55 1UIBC 233 112-346 ug/dL 11/15/2019 09:55 1IRON SATURATION 32 22-55 % 11/15/2019 09:55 Performing Lab Footnotes:[facility] - [id number] - [address] [place] [id number] STEPHANIE WHTIECIOMD1 Reference Laboratory Results Order: AFP-TUMOR MARKER @ (3 Days to Results) Specimen Source: Body Site: LOINC Code Test Result Flag Range Units Date 91746-5 8Zfsom-2-Ljtbzotqfwi. 3.1 0.0-8.3 ng/mL 11/15/2019 9:55:00 AM tumor freeman Note: [facility] Electrochemiluminescence Immunoassay (ECLIA) . Values obtained with different assay methods or kits cannot be used interchangeably. Results cannot be interpreted as absolute evidence of the presence or absence of malignant disease. . This test is not interpretable in females. Performing Lab Footnotes:[facility] - [address], [place] [id number] ASHLYN Pruitt REYES1 Order: FibroSURE HCV [SO] Specimen Source: Body Site: LOINC Code Test Result Flag Range Units Date 20925-7 1Liver fibrosis score 0.37 H 0.00-0.21 11/15/2019 9:55:00 AM 45516-6 1Fibrosis stage F1-F2 11/15/2019 9:55:00 AM 44185-0 1Necroinflammatory 0.13 0.00-0.17 11/15/2019 activity sco 9:55:00 AM 02099-2 1Necroinflammatory A0-No activity 11/15/2019 activity gra 9:55:00 AM 1835-8 4Hnnvs-1-Kraopmqkuudwe 273 110-276 mg/dL 11/15/2019 9:55:00 AM 4542-7 1Haptoglobin 171 29-370 mg/dL 11/15/2019 9:55:00 AM 1869-7 1Apolipoprotein A-I 114 101-178 mg/dL 11/15/2019 9:55:00 AM 1975-2 1Bilirubin 0.4 0.0-1.2 mg/dL 11/15/2019 9:55:00 AM 2324-2 1Gamma glutamyl 18 0-65 IU/L 11/15/2019 transferase 9:55:00 AM 1743-4 1Alanine 26 0-55 IU/L 11/15/2019 aminotransferase 9:55:00 AM 1Interpretations: Comment 11/15/2019 9:55:00 AM Note: Quantitative results of 6 biochemical tests are analyzed using a computational algorithm to provide a quantitative surrogate marker (0.0-1.0) for liver fibrosis (METAVIR F0-F4) and for necroinflammatory activity (METAVIR A0-A3). 1Fibrosis Scoring: Comment 11/15/2019 9:55:00 AM Note: <0.21 = Stage F0 - No fibrosis 0.21 - 0.27 = Stage F0 - F1 0.27 - 0.31 = Stage F1 - Portal fibrosis 0.31 - 0.48 = Stage F1 - F2 0.48 - 0.58 = Stage F2 - Bridging fibrosis with few septa 0.58 - 0.72 = Stage F3 - Bridging fibrosis with many septa 0.72 - 0.74 = Stage F3 - F4 >0.74 = Stage F4 - Cirrhosis 1Necroinflamm Activity Scoring: Comment 11/15/2019 9:55:00 AM Note: <0.17 = Grade A0 - No Activity 0.17 - 0.29 = Grade A0 - A1 0.29 - 0.36 = Grade A1 - Minimal activity 0.36 - 0.52 = Grade A1 - A2 0.52 - 0.60 = Grade A2 - Moderate activity 0.60 - 0.62 = Grade A2 - A3 >0.62 = Grade A3 - Severe activity 8251-1 1Service comment Comment 11/15/2019 9:55:00 AM Note: The negative predictive value of a Fibrotest score <0.31 (absence of clinically significant fibrosis) was 85% when compared to liver biopsy in 1,270 HCV infected patients with a 38% prevalence of significant liver fibrosis (F2, 3 or 4). The positive predictive value of a Fibro- test score >0.48 (F2, 3, 4) was 61% in that same patient cohort. HCV FibroSURE is not recommended in patients with Gilbert Disease, acute hemolysis (e.g. HCV ribavirin therapy mediated hemolysis) acute hepa- titis of the liver, extra-hepatic cholestasis, transplant patients, and/or renal insufficiency patients. Any of these clinical situations may lead to inaccurate quantitative predictions of fibrosis and necroinflammatory activity in the liver. 15436-5 1Laboratory comment Comment 11/15/2019 9:55:00 AM Note: This test was developed and its performance characteristics determined by [facility]. It has not been cleared or approved by the Food and Drug Administration. The FDA has determined that such clearance or approval is not necessary. . For questions regarding this report please contact customer service at . Performing Lab Footnotes:[facility] - [address], [place] [id number] POPPY FORBES1 Social History Code Code System Social History Observation Description Dates Observed 218649476 SNOMED CT Current Smoking Status Never smoker UNK AdministrativeGender Sex Assigned At Unknown Vital Signs No data in the system Goals Section No data in the system Health Concerns No data in the systemEncounter Diagnosis Date Code Code System Diagnosis Status R94.5 ICD10 ABNORMAL RESULTS LIVR FUNCTION STDY Active Advance Directives *RHIO - CONSENT IS YES Directive Type Effective Date Intervention Manager Notes Supporting Document Name Address Phone No Directive Type 12/14/2016 Not Specified Not Specified Not Specified None No specified 10:59:27 AM Encounters Encounter Diagnosis Location Date ABNORMAL RESULTS [facility] 11/15/2019 Family History Patient has no knowledge of [...]
--- OUTSIDE RECORDS SUMMARY | 2019-11-28 06:16 | XMS REPORT | Continuity of Care Document ---
:1960 Author Organization [facility] Care Team Providers Name Role Phone MONICA REED Admitting Physician MONICA REED Attending Physician MONICA REED Primary Care Physician Allergies and Intolerances No Allergy Data in the System Medications RxNorm Medication Dose Route Instructions Start End Date Status Date Azithromycin (Take 2 Active tablets po on day one then one tablet a day for the next 4 days.) 247177 benzonatate 200 MG Oral 200 mg oral orally every 8 Active Capsule hours as needed. (10 days) (as needed for cough) 354922 febuxostat 80 MG Oral 80 mg oral orally every day Active Tablet 061556 Hydrochlorothiazide 12.5 1 tab oral orally every day Active MG / Olmesartan medoxomil 40 MG Oral Tablet 023971 Hydroxychloroquine 200 mg oral orally 2 times Active Sulfate 200 MG Oral per day Tablet 845803 Metoprolol Tartrate 50 50 mg oral orally [...] a day for the next 4 days.) 641322 benzonatate 200 MG Oral 200 mg oral orally every 8 Active Capsule hours as needed. (10 days) (as needed for cough) 857349 febuxostat 80 MG Oral 80 mg oral orally every day Active Tablet 284966 Hydrochlorothiazide 12.5 1 tab oral orally every day Active MG / Olmesartan medoxomil 40 MG Oral Tablet 286018 Hydroxychloroquine 200 mg oral orally 2 times Active Sulfate 200 MG Oral per day Tablet 386117 Metoprolol Tartrate 50 50 mg oral orally every day Active MG Oral Tablet 9143 Ranitidine 150 mg oral orally every day Active 9997 Spironolactone 12.5 mg oral orally every Active morning Problems Code Code System Problem Name Start Date End Date Status 00850948 SNOMED-CT Heart disease 2001 Active 18614784 SNOMED-CT Hypertensive disorder 2001 Active 86165440 SNOMED-CT Hypercholesterolemia 2000 Active Procedures No data in the system Results Radiology Results Order: HIP UNILATERAL W/ PELVIS 2-3 VIEW LEFTExam Completion Date:10/06/2019 10: 10:34 AM LEFT HIP X-RAYS CLINICAL INFORMATION: -- Pain of left hip joint COMPARISON: None. PROCEDURE: AP projection of the pelvis and 2 projections of the left hip were obtained. FINDINGS/IMPRESSION: No acute fracture or dislocation is evident. Advanced degenerative changes are seen in the left hip. Flattening of the femoral head is also seen suggesting sequelae of previous AVN. END OF IMPRESSION [facility] submits Radiology results to [facility] and [facility] then provides those same results to [facility]. All results are available to [facility] and [facility] provider portal users. [facility] DICOM images are available to the [facility] provider portal users only. [facility] DICOM images are not available to the [facility] provider portal users. There is no current [facility] functionality allowing images to be available through the [facility] to [facility] connectivity. Electronically signed By: Ru Urias MD Read By: RU URIAS Date: 10/06/2019 10:37 Social History Code Code System Social History Observation Description Dates Observed 703852303 [facility] CT Current Smoking Status Never smoker UNK AdministrativeGender Sex Assigned At Unknown Vital Signs No data in the system Goals Section No data in the system Health Concerns No data in the systemEncounter Diagnosis Date Code Code System Diagnosis Status M25.552 ICD10 PAIN IN LEFT HIP Active Advance Directives *RHIO - CONSENT IS YES Directive Type Effective Date Dragger Notes Supporting Document Name Address Phone No Directive Type 12/14/2016 Not Specified Not Specified Not Specified None No specified 10:59:27 AM Encounters Encounter Diagnosis Location Date PAIN IN LEFT HIP [facility] 10/06/2019 Family History Patient has no knowledge [...] Treatment No data in the systemPending Tests Test Start Date HIP UNILATERAL W/ PELVIS MIN 4 VIEW 10/06/2019 10:10 Hospital Discharge Instructions No data in the system Reason for Visit Reason for Visit xray
--- OUTSIDE RECORDS SUMMARY | 2019-11-28 06:16 | XMS REPORT | Continuity of Care Document ---
:1960 External Reference #:[id number] Author Name Mariposa Hurd M.D. (transmitted by agent of provider Maxine Lerner) Address [address] [place] [address] Care Team Providers Name Role Phone Gilmer Reyes MD - Internal Medicine Care Team Information Pulmonary Physical Therapist Problems Active Problems Provider Date Localized, primary osteoarthritis of the pelvic Mariposa Hurd M.D. Onset: region and thigh Social History Type Date Description Comments Sex Unknown ETOH Use Never used alcohol Tobacco Use Start: Unknown Patient has never smoked Smoking Status Reviewed: 10/20/19 Patient has never smoked Allergies, Adverse Reactions, [...] Available Vital Signs Date Vital Result Comment 10/20/2019 1:28pm Height 69 inches 5'9" Weight 250.00 lb Heart Rate 87 /min BP Systolic Sitting 148 mmHg BP Diastolic Sitting 80 mmHg Respiratory Rate 16 /min Pain Level 10 O2 % BldC Oximetry 96 % BMI (Body Mass Index) 36.9 kg/m2 Results Description No Information Available Procedures Description No Information Available Medical Devices Description No Information Available Encounters Description No Information Available Assessments Date Code Description Provider 10/20/2019 M25.552 Pain in left hip Mariposa Hurd M.D. 10/20/2019 M16.12 Unilateral primary osteoarthritis, left hip Mariposa Hurd M.D. Plan of Treatment Future Appointment(s):11/17/2019 1:15 pm - JESSENIA Martinez at [facility] at Azpwiz2111/28/2019 4:30 pm - Mariposa Hurd M.D. at [facility] at [id number]/20/2019 - Mariposa Hurd M.D.M25.552 Pain in left hipNew Xrays:Hip Left 2 Views And Pelvis 42548 - 14106, Ordered: 10/20/19Follow up: Follow up: 7-10 days before kfxphqqM72.12 Unilateral primary osteoarthritis, left hip Functional Status Description No Information Available Mental Status Description No Information Available Referrals Description No Information Available
--- OUTSIDE RECORDS SUMMARY | 2019-11-28 06:16 | XMS REPORT | Continuity of Care Document ---
:1960 External Reference #:[id number] Author Name Denis Enamorado M.D. (transmitted by agent of provider Aislinn Candelaria) Address [address], [address] [place] [address] Problems Active Problems Provider Date Peptic reflux disease Gilmer Reyes M.D. Onset: 03/14/2013 Obstructive sleep apnea syndrome JOSE Fuller Onset: 12/29/2017 Social History Type Date Description Comments Sex Unknown Tobacco Use Start: Unknown Never Smoked Cigarettes ETOH Use consumes 2 six packs per week Tobacco Use Start: Unknown Patient has never smoked Recreational Drug Use Denies Drug Use Smoking Status Reviewed: 11/22/19 Patient has never smoked Allergies, Adverse Reactions, Alerts Description No Known Drug Allergies Medications Active Medications SIG Qnty Indications Ordering Provider Date Famotidine 1 by mouth 60tabs Gilmer Reyes, 09/28/2019 20mg Tablets twice a day prn M.D. Amlodipine Besylate Take One Tablet 30tabs Gilmer Reyes, 10/17/2018 5mg By Mouth Every M.D. Tablets Day Metoprolol Succinate ER 1 by mouth Gilmer Reyes, 11/28/2014 every day M.D. 50mg Tablets ER 24HR Glucosamine Chondroitin 2 po qg Unknown Tablets Multi-Day Vitamins 1 po qd 30tabs Unknown Tablets Spironolactone Take One-Half 90tabs Carla Gambino, 25mg Tablets Tablet By Mouth PA Once Daily Fenofibrate 1 by mouth Unknown 145mg Tablets every day Uloric 2 by mouth Unknown 40mg Tablets every day Benicar HCT Unknown 20-12.5mg Tablets Fish Oil 1 by mouth Unknown 1000mg Capsules every day Magnesium Oxide 1 by mouth Unknown 400(240Mg) mg Tablets History Medications Uloric 1 po qd 30tabs Gilmer Reyes M.D. 10/06/2019 - 11/22/2019 80mg Tablets Immunizations CPT Code Status Date Vaccine Lot # [id number] Given 09/18/2019 Shingrix (Shingles)Zoster (HZV), Recombinant, Subunit, Adjuvanted 41195 Given 07/13/2019 Influenza(Flublok)Virus Vaccine 18yr & up-Pres Free 09018 Given 07/03/2018 Influenza Virus Vaccine, Quad, Preservative Free 6mo & up 92911 Given 05/27/2015 Influenza Quad 3yrs (0.5-ml dose) & up with preservative 94232 Given 08/21/2014 Influenza Quad 3yrs (0.5-ml dose) & up with preservative 24596 Given 07/24/2013 Influenza Virus Split 3 Yrs And Above For Intramuscular Use Vital Signs Date Vital Result Comment 11/22/2019 10:00am Weight 262.00 lb Weight 118.843 kg BP Systolic 142 mmHg BP Diastolic 90 mmHg Heart Rate 83 /min O2 % BldC Oximetry 94 % 11/16/2019 2:24pm Weight 257.00 lb Weight 116.575 kg BMI (Body Mass Index) 37.4 kg/m2 BP Systolic 142 mmHg BP Diastolic 68 mmHg Heart Rate 88 /min Height 69.5 inches 5'9.50" Height in cm's 176.5 cm Results Test Acquired Date Facility Test Result H/L Range Note CBC W/Auto 11/15/2019 [facility] WBC 7.8 K/uL 4.8-10.8 Differential [address] [place] [address] [phone] RBC 4.65 M/uL 4.60-6.20 Hemoglobin 15.2 gm/dL 13.5-18.0 Hematocrit 45.7 % 41.0-53.0 MCV 98.4 fL 80.0-100.0 MCHC 33.2 % 30.0-36.5 MCH 32.6 pg 27.0-34.0 RDW 12.6 % 11.0-15.0 Platelet 217 K/uL 130-450 MPV 7.9 fL 6.0-12.0 NE% 71 % 37-80 Ly% 22 % 10-50 Mo% 5 % 0-12 Eo% 1 % <=8 Ba% 0 % <=3 NE# 5.5 K/uL 1.8-8.6 Lymph# 1.7 K/uL 0.5-5.0 [place]# 0.4 K/uL 0.0-1.3 Eos# 0.1 K/uL 0.0-0.9 Baso# 0.0 K/ul 0.0-0.3 Hepatic Funct Panel 11/15/2019 [facility] T Protein 7.9 gm/dL 6.4-8.[address] [place] [address] [id number] [phone] Albumin 4.6 gm/dL 3.2-4.6 T Bili 0.6 mg/dL 0.0-1.2 Direct Bili 0.3 mg/dL 0.0-0.3 Alk Phos 62 U/L 40-150 Alt (SGPT) 25 U/L 0-55 Ast (Sgot) 25 U/L 5-37 Iron Saturation 11/15/2019 [facility] Iron 109 g/dL 50-[address] [place] [address] [id number] [phone] Uibc 233 g/dL 112-346 Iron Saturation 32 % 22-55 Laboratory test 11/15/2019 [facility] Ferritin 454 ng/mL High 26-[address] [place] [address] [phone] [phone] Afp Tumor Marker 11/15/2019 [facility] Afp, Serum, 3.1 ng/mL 0.0-8.[address] [place] [address] [place], [place] [id number] [phone] Fibrosure HCV 11/15/2019 [facility] Fibrosis Score 0.37 L High 0.00-0.[address] [place] [address] [phone] Fibrosis Stage F1-F2 L Necroinflammat Activity Score 0.13 L 0.00-0.17 Necroinflammat Activity Grade A0-No activity L Alpha 2-Macroglobulins, QN 273 mg/dL 110-276 Haptoglobin 171 mg/dL 29-370 Apolipoprotein A-1 114 mg/dL 101-178 Bilirubin, Total 0.4 mg/dL 0.0-1.2 GGT 18 IU/L 0-65 Alt (SGPT) P5P 26 IU/L 0-55 Interpretations: Comment L 2 Fibrosis Scoring: Comment L 3 Necroinflamm Activity Scoring: Comment L 4 Limintations: Comment L 5 Comment: Comment L 6 Laboratory test finding 10/06/2019 [facility] Uric Acid 6.2 mg/dL 2.6-7.2 [address] [place], [place] [id number] [phone] PSA 0.38 ng/mL 0.03-4.00 7 Basic Metabolic Panel 10/06/2019 [facility] Sodium 139 mmol/L 136-145 [address] [place], [place] [phone] Potassium 4.4 mmol/L 3.5-5.2 Chloride 105 mmol/L 100-108 Co2 25 mmol/L 21-32 Glucose 91 mg/dL 70-100 BUN 39 mg/dL High 7-21 Creatinine 1.2 mg/dL 0.6-1.3 8 Calcium 10.0 mg/dL 8.5-10.8 GFR >60 Laboratory test 08/22/2019 [facility] Afp-Tumor 2.8 ng/mL 0.0- 8.3 9 finding [phone] Marker @ (3 Days to Results) Hepatic Funct 08/22/2019 [facility] T Protein 8.0 gm/dL 6.4- 8.2 Panel [phone] Albumin 4.4 gm/dL 3.2-4.6 T Bili 0.5 mg/dL 0.0-1.2 Direct Bili 0.3 mg/dL 0.0-0.3 Alk Phos 66 U/L 40-150 Alt (SGPT) 19 U/L 0-55 Ast (Sgot) 25 U/L 5-37 CBC W/Auto Differential 08/22/2019 [facility] WBC 8.7 K/uL 4.8- 10.8 [phone] RBC 4.12 M/uL Low 4.60-6.20 Hemoglobin 13.7 [...] 6.2 K/uL 1.8-8.6 Lymph# 1.8 K/uL 0.5-5.0 [place]# 0.4 K/uL 0.0-1.3 Eos# 0.1 K/uL 0.0-0.9 Baso# 0.2 K/ul 0.0-0.3 Iron Saturation 08/22/2019 [facility] Iron 134 g/dL 50-175 [phone] Uibc 205 g/dL 112-346 Iron Saturation 40 % 22-55 Laboratory test 08/22/2019 [facility] Ferritin 567 ng/mL High 26 -388 finding [phone] Fibrosure HCV 08/22/2019 [facility] Fibrosis 0.34 L High 0.00- 0.21 [phone] Score Fibrosis Stage F1-F2 L Necroinflammat Activity Score 0.08 L 0.00-0.17 Necroinflammat Activity Grade A0-No activity L Alpha 2-Macroglobulins, QN 275 mg/dL 110-276 Haptoglobin 196 mg/dL 34-200 10 Apolipoprotein A-1 119 mg/dL 101-178 Bilirubin, Total 0.4 mg/dL 0.0-1.2 GGT 18 IU/L 0-65 Alt (SGPT) P5P 20 IU/L 0-55 Interpretations: Comment L 11 Fibrosis Scoring: Comment L 12 Necroinflamm Activity Scoring: Comment L 13 Limintations: Comment L 14 Comment: Comment L 15 1 [employer] Electrochemiluminescence Immunoassay (ECLIA) . Values obtained with different assay methods or kits cannot be used interchangeably. Results cannot be interpreted as absolute evidence of the presence or absence of malignant disease. . This test is not interpretable in females. 2 Quantitative results of 6 biochemical tests are analyzed using a computational algorithm to provide a quantitative surrogate marker (0.0-1.0) for liver fibrosis (METAVIR F0-F4) and for necroinflammatory activity (METAVIR A0-A3). 3 <0.21 = Stage F0 - No fibrosis [...] F4 >0.74 = Stage F4 - Cirrhosis 4 <0.17 = Grade A0 - No Activity 0.17 - 0.29 = Grade A0 - A1 0.29 - 0.36 = Grade A1 - Minimal activity 0.36 - 0.52 = Grade A1 - A2 0.52 - 0.60 = Grade A2 - Moderate activity 0.60 - 0.62 = Grade A2 - A3 >0.62 = Grade A3 - Severe activity 5 The negative predictive value of a Fibrotest [...] fibrosis and necroinflammatory activity in the liver. 6 This test was developed and its performance characteristics determined by [employer]. It has not been cleared or approved by the Food and Drug Administration. The FDA has determined that such clearance or approval is not necessary. . For questions regarding this report please contact customer service at [phone]. 7 . [employer] Chemiluminescent Immunoassay Do NOT use interchangeably with other methods. NOT to be used as a Cancer Screening NOR as a guide in Disease Staging. 8 Normal Kidney Function or Mild Disease - GFR >OR= 60 Chronic Kidney Disease - GFR 15-59 Renal Failure - GFR < 15 GFR not calculated on patients under 18 years of age. 9 [employer] Electrochemiluminescence Immunoassay (ECLIA) . Values obtained with different assay methods or kits cannot be used interchangeably. Results cannot be interpreted as absolute evidence of the presence or absence of malignant disease. . This test is not interpretable in females. 10 Effective September 04, 2019 Haptoglobin reference interval will be changing to: Age Male Female 0 - 6 months Not Estab. Not Estab. 7 months - 1 year 23 - 218 23 - 218 2 - 5 years 10 - 212 10 - 212 6 - 12 years 10 - 182 10 - 182 13 - 17 years 20 - 191 22 - 208 18 - 40 years 17 - 317 33 - 278 41 - 50 years 23 - 355 42 - 296 51 - 60 years 29 - 370 33 - 346 61 - 70 years 32 - 363 37 - 355 71 - 80 years 34 - 355 42 - 346 >80 years 38 - 329 41 - 333 11 Quantitative results of 6 biochemical tests are analyzed using a computational algorithm to provide a quantitative surrogate marker (0.0-1.0) for liver fibrosis (METAVIR F0-F4) and for necroinflammatory activity (METAVIR A0-A3). 12 <0.21 = Stage F0 - No fibrosis [...] F4 >0.74 = Stage F4 - Cirrhosis 13 <0.17 = Grade A0 - No Activity 0.17 - 0.29 = Grade A0 - A1 0.29 - 0.36 = Grade A1 - Minimal activity 0.36 - 0.52 = Grade A1 - A2 0.52 - 0.60 = Grade A2 - Moderate activity 0.60 - 0.62 = Grade A2 - A3 >0.62 = Grade A3 - Severe activity 14 The negative predictive value of a Fibrotest [...] fibrosis and necroinflammatory activity in the liver. 15 This test was developed and its performance characteristics determined by [employer]. It has not been cleared or approved by the Food and Drug Administration. The FDA has determined that such clearance or approval is not necessary. . For questions regarding this report please contact customer service at . Procedures Description No Information Available Medical Devices Description No Information Available Encounters Type Date Location Provider Dx Diagnosis Office Visit 11/16/2019 Lisseth Donnelly Z01.810 Encounter for 2:30p Medicine And Heidi Reyes preprocedural Pediatrics cardiovascular examination Z01.810 Encounter for preprocedural cardiovascular examination I10 Essential (primary) hypertension I10 Essential (primary) hypertension E78.2 Mixed hyperlipidemia E78.2 Mixed hyperlipidemia G47.33 Obstructive sleep apnea (adult) (pediatric) G47.33 Obstructive sleep apnea (adult) (pediatric) Office Visit 10/06/2019 8:45a Lisseth Donnelly I10 Essential ( primary) Medicine And Heidi Reyes hypertension Pediatrics E78.2 Mixed hyperlipidemia M10.09 Idiopathic gout, multiple sites M25.552 Pain in left hip Z12.5 Encounter for screening for malignant neoplasm of prostate Office Visit 09/07/2019 9:40a [facility] Kimberlee Rushing G47.33 Obstructive sleep & Sleep Medicine Mp, MARKETING [employer]ODUCER apnea (adult) (pediatric) Assessments Date Code Description Provider 11/16/2019 Z01.810 Encounter for preprocedural cardiovascular Gilmer Reyes M.D. examination 11/16/2019 Z01.810 Encounter for preprocedural cardiovascular Gilmer Reyes M.D. examination 11/16/2019 I10 Essential (primary) hypertension Gilmer Reyes M.D. 11/16/2019 I10 Essential (primary) hypertension Gilmer Reyes M.D. 11/16/2019 E78.2 Mixed hyperlipidemia Gilmer Reyes M.D. 11/16/2019 E78.2 Mixed hyperlipidemia Gilmer Reyes M.D. 11/16/2019 G47.33 Obstructive sleep apnea (adult) (pediatric) Gilmer Reyes M.D. 11/16/2019 G47.33 Obstructive sleep apnea syndrome Gilmer Reyes M.D. 10/06/2019 I10 Essential (primary) hypertension Gilmer Reyes M.D. 10/06/2019 E78.2 Mixed hyperlipidemia Gilmer Reyes M.D. 10/06/2019 M10.09 Idiopathic gout, multiple sites Gilmer Reyes M.D. 10/06/2019 M25.552 Pain in left hip Gilmer Reyes M.D. 10/06/2019 Z12.5 Encounter for screening for malignant Gilmer Reyes M.D. neoplasm of prostate 09/07/2019 G47.33 Obstructive sleep apnea syndrome Kimberlee Gresham, MARKETING [employer]ER Plan of Treatment Future Appointment(s):05/29/2020 9:30 am - Denis Enamorado M.D. at [facility]/24/2020 11:30 am - Gilmer Reyes M.D. at [facility] Ionxatqsjj26/19/2020 9:45 am - Helena Mullen MD at [facility] Functional Status Functional Condition Comment Date Status Glasses READING Active Mental Status Description No Information Available Referrals Refer to Reason for Referral Status Appt Date Mariposa Hurd MD Scheduled 10/20/[address] [place] [address] [place] [address]
--- OUTSIDE RECORDS SUMMARY | 2019-11-28 06:16 | XMS REPORT | Continuity of Care Document ---
:1960 External Reference #:[id number] Author Name John Moya M.D. Address [address] [place] [address] Care Team Providers Name Role Phone Gilmer Reyes M.D. - Internal Care Team Information Technical Writing Lead/Mgr [phone] Medicine Problems Active Problems Provider Date Gout Gilmer Reyes M.D. Onset: 03/14/2013 Essential hypertension Gilmer Reyes M.D. Onset: 03/14/2013 Mixed hyperlipidemia Gilmer Reyes M.D. Onset: 03/14/2013 Peptic reflux disease Gilmer Reyes M.D. Onset: 03/14/2013 Combined form of senile cataract Keila Ng O.D. Onset: 09/26/2015 Nuclear senile cataract Keila Ng O.D. Onset: 09/26/2015 Tear film insufficiency Keila Ng O.D. Onset: 09/26/2015 Taking medication Keila Ng O.D. Onset: 09/26/2015 Localized, primary osteoarthritis of the Keila Ng O.D. Onset: 2015 hand Systemic lupus erythematosus Keila Ng O.D. Onset: 09/26/2015 Hypermetropia Keila Ng O.D. Onset: 09/26/2015 Presbyopia Keila Ng O.D. Onset: 09/26/2015 Presence of intraocular lens Keila Ng O.D. Onset: 10/10/2015 Visual field defect Keila Ng O.D. Onset: 10/31/2015 Conjunctivitis Ava Vargas O.D. Onset: 01/27/2016 Foreign body in cornea, right eye, initial John Moya M.D. Onset: encounter Foreign body in cornea, left eye, sequela John Moya M.D. Onset: 02/15 Social History Type Date Description Comments Sex Unknown ETOH Use Occasionally consumes alcohol Tobacco Use Start: Unknown Patient has never smoked Recreational Drug Use Never Used Drugs Smoking Status Reviewed: 11/23/19 Patient has never smoked Allergies, Adverse Reactions, Alerts Description No Known Drug Allergies Medications Active Medications SIG Qnty Indications Ordering Provider Date Artificial Tears as needed John Moya, 11/22/2019 1-0.3% M.D. Solution Metoprolol Succinate ER 1 by mouth Eric, Gilmer 11/28/2014 every day M.D. 50mg Tablets ER 24HR Benicar HCT 1/2 tablet once Eric, Gilmer 09/05/2014 20-12.5mg daily M.D. Tablets Uloric once daily [facility], Gilmer 04/05/2013 80mg Tablets M.D. Spironolactone 1/2 by mouth 30tabs [facility], Gilmer 25mg Tablets every day M.D. Fish Oil 1 by mouth Unknown 1000mg Capsules every day Glucosamine Chondroitin one tablet Unknown 1500 Complex twice daily 1500Com Capsules One Daily Mens 50+ Unknown Multivitamin Mens 50+ Tablets Famotidine Take One Tablet Unknown 20mg Tablets By Mouth Twice A Day Amlodipine Besylate [facility], Gilmer 5mg M.D. Tablets Fenofibrate Take One Tablet Unknown 145mg Tablets By Mouth Every Day Magox 400 one tablet Unknown 400(241.3mg) mg daily Tablets Immunizations Description No Information Available Vital Signs Description No Information Available Results Description No Information Available Procedures Description No Information Available Medical Devices Description No Information Available Encounters Description No Information Available Assessments Date Code Description Provider 11/23/2019 H43.813 Vitreous degeneration, bilateral John Moya M.D. Plan of Treatment 11/23/2019 - John Moya M.D.H43.813 Vitreous degeneration, bilateralComments:Smoking can increase the risk of developing or worsening any eye related disease, as well as affect your overall health. If you are a smoker , we strongly recommend that you quit.If you are not a smoker, we strongly recommend that you do not start. You have a Posterior Vitreous Detachment. If you have any changes in your floaters or flashing lights, please contact this office.Follow up:2 Year Follow Up DFE You can expect to have your eyes dilated at your next visit. If Dr. Moya orders any additional testing, it may require extra time. We recommend that you bring sunglasses, as dilation drops often make you light sensitive until they wear off. We always recommend you bring someone to drive you home if you are uncomfortable driving with your eyes dilated. If you have any questions before your next visit, feel free to call our office at . Functional Status Description No Information Available Mental Status Description No Information Available Referrals Description No Information Available
[2019-11-28] MEDS ORDERED: Acetaminophen TAB* 325 MG ONE (06:35)
[2019-11-28] MEDS ORDERED: ceFAZolin 2 GM PREMIX in ORs 2 GM/50 ML BAG ONE (06:35)
[2019-11-28] MEDS ORDERED: Buffered Lidocaine 1% SYRIN* 1 ML/SYRINGE INTRADERM ONE (06:35)
[2019-11-28] MEDS ORDERED: celeCOXIB CAP* 200 MG ONE (06:35)
[2019-11-28] MEDS ORDERED: Gabapentin CAP(*) 300 MG ONE (06:35)
[2019-11-28] MEDS ORDERED: Midazolam* 1 MG/ML 2 ML VIAL (2 MG) ONE (07:17)
[2019-11-28] MEDS ORDERED: fentaNYL* 50 MCG/ML 2 ML VIAL (100 MCG VIAL) ONE (07:17)
[2019-11-28] MEDS ORDERED: Naloxone* 0.4 MG/ML 1 ML VIAL IV PRN (07:26)
[2019-11-28] MEDS ORDERED: HYDROmorphone INJ1* 1 MG/ML SYRINGE IV PRN (07:26)
[2019-11-28 07:59] LABS: INR 1.16 (0.82-1.09)
[2019-11-28] MEDS ORDERED: Dexamethasone IV* 4 MG/ML 1 ML (4 MG) ONE (08:33)
[2019-11-28] MEDS ORDERED: Ondansetron INJ* 2 MG/ML VIAL ONE (08:33)
[2019-11-28] MEDS ORDERED: Phenylephrine 40 MCG/ML SYRINGE ONE (08:34)
[2019-11-28] MEDS ORDERED: Propofol* 500 MG/50 ML BTL ONE ×2 (08:34→09:28)
[2019-11-28] MEDS ORDERED: ROPIVACAINE 5 MG/ML 30 ML BTL (0.5%) ONE (09:02)
[2019-11-28] MEDS ORDERED: diPHENhydraMINE PO* 25 MG PO PRN (11:04)
[2019-11-28] MEDS ORDERED: Magnesium Hydroxide LIQ* 30 ML UDC PO PRN (11:04)
[2019-11-28] MEDS ORDERED: Ondansetron INJ* 2 MG/ML VIAL IV PRN (11:04)
[2019-11-28] MEDS ORDERED: diPHENhydraMINE IV* 50 MG/ML 1 ml VIAL (BENADRYL) IV PRN (11:04)
[2019-11-28] MEDS ORDERED: Acetaminophen TAB* 325 MG PO PRN (11:04)
[2019-11-28] MEDS ORDERED: Morphine INJ* 2 MG/ML 1 ML SYRINGE (TWO MG - NEW SYRINGE VERSION) IV PRN (11:04)
[2019-11-28] MEDS ORDERED: oxyCODONE TAB* 5 MG TAB PO PRN (11:04)
[2019-11-28] MEDS ORDERED: Cyclobenzaprine TAB* 10 MG PO PRN (11:04)
[2019-11-28] MEDS ORDERED: Ondansetron ODT TAB* 4 MG PO PRN (11:04)
[2019-11-28] MEDS: Lactated Ringers 1000 ML Bag* 1,000 ML IV SCH (12:12)
[2019-11-28] MEDS: oxyCODONE/Acetamin 5/325 MG* TAB PO PRN ×3 (12:35→20:43)
[2019-11-28] MEDS: ceFAZolin 1 GM ADVAN(*) 1 GM in NS 0.9% 50 ML* 50 ML IVPB SCH (16:39)
--- NOTE | 2019-11-28 18:04 | PN ---
Progress Note - Progress Note Date of Service: 11/28/19 Note: pt seen at bedside POD 0 sp LTH. he feels well and pain is controlled. Denies CP , SOB, dizziness, nausea. thigh soft, df/pf intact, dp2+, sensation intact to light touch distally.
--- NOTE | 2019-11-28 20:17 | OP ---
Operative Report - Blank - Operative Report Date of Operation: 11/28/19 Note: RON NORIEGA 1960 Date Of Surgery: 11/28/19 Mariposa Hurd MD [place] Developer: Jose Guadalupe RUELAS did help throughout the procedure with preparation of the hip, wound retraction, manipulation of the hip, and wound closure. Anesthesiologist: Dr. Bass Anesthesia Type: Spinal Preoperative Diagnosis: Left severe degenerative osteoarthritis of the hip Postoperative Diagnosis: As above Procedure Performed: Left Total Hip Arthroplasty Complications: None Specimen: Femoral head and acetabular reamings sent to pathology. Hardware used: This is uncemented [place] total hip arthroplasty hardware for the femur a size 7 accolade II with 127 neck angle femoral component, for the acetabulum a size 54E trident II tritanium cluster hole shell, a single 15mm screw, for the insert a size 36E trident X3 polyethylene insert, and for the femoral head a size 36 - 2.5 ceramic biolox V40 femoral head. Brief history/Indication: RON NORIEGA was known in clinic and had a history of severe left hip pain. He failed conservative treatment with anti- inflammatories, pain pills, intra-articular injections and physical therapy. He elected to undergo left total hip arthroplasty due to continued pain and decreased quality of life. Radiographs showed severe end stage osteoarthritis of the hip with bone on bone contact. Informed consent was obtained from the patient. He understood the risks of surgery included but were not limited to: bleeding, infection, damage to nearby structures, intraoperative fracture, nerve palsy, failure of the hardware, early loosening, stiffness or loss of motion, dislocation, leg length discrepancy, anesthesia complications, stroke, heart attack, blood clot and . He wished to proceed. Intra-Operative findings: Intraoperatively the patient was noted to have severe loss of cartilage of the acetabulum and femoral head. Description of the Procedure: RON NORIEGA was identified in the preanesthesia unit. His left hip was marked as the correct operative side. Informed consent was signed and placed in the chart. The patient was taken to the operating room and placed under anesthesia without complication. A cannon catheter was placed. The patient was placed on the peg board with all bony prominences well padded. The left lower extremity was prepped and draped in the usual sterile fashion. Preoperative time -out was made to correctly identify the patient, side and site. Appropriate intraoperative antibiotics were given within one hour of incision. A standard posterior incision was made and carried sharply down to the lateral fascia. A new 10 blade was used to make an incision in the fascia in line with the skin incision. A charnley retractor was placed. The piriformis and conjoined tendons were identified and elevated off the posterolateral femur using electrocautery. These were tagged with number 5 Ethibond. Next electrocautery was used to make a posterolateral capsular flap and this was tagged with number 5 Ethibonds. The hip was carefully dislocated. Lesser trochanter to the center of the femoral head was measured at 65 mm. The oscillating saw was used to make the femoral neck cut. The femoral head was carefully removed. The femur was retracted anteriorly and the acetabular retractors were placed. Long-handled knife was used to sharply remove any remaining labrum from the acetabular rim. The acetabulum was sequentially reamed up to a size 54. A bleeding subchondral bone bed was obtained. A trial liner was placed and had excellent fit and stability. A 54E cup with one screw was placed and had excellent stability with appropriate anteversion and abduction angle. A size 36E liner was impacted into the acetabular shell. The liner was checked for stability and was stable. Next attention was turned to preparation of the femoral canal. A canal finder was used to enter the proximal femur. The femoral canal was sequentially broached up to a size 7 femoral broach trial. A trial neck and 36 - 2.5 trial femoral head was chosen. Lesser trochanter to center of the femoral head measurement was satisfactory. The hip was reduced and taken through a range of motion. The hip was stable in all positions with good soft tissue tension and appropriate leg lengths. The hip was dislocated and all trials were removed. The final implant chosen was a accolade size 7. This stem was impacted into the femoral canal without difficulty. The stem was stable with appropriate anteversion. The femoral head chosen was a 36 - 2.5 The head was impacted onto the femoral neck without difficulty. The final lesser trochanter to center of the femoral head measurement was satisfactory. The hip was reduced and taken through a range of motion. The hip was stable in all positions with good soft tissue tension and appropriate leg lengths. The hip was copiously irrigated with sterile saline. The previously tagged capsule and tendons were repaired to the posterolateral femur through two trochanteric drill holes. The lateral fascia layer was closed using number 1 vicryls. The rest of the incision was closed in a layered fashion using 0 and 2-0 vicryls. The skin was closed using 3-0 monocryl suture and Dermabond. Sterile adaptic, 4x4s and paper tape was used to cover the incision. The patients anesthesia was reversed without difficulty. He was taken to the PACU in stable condition. Intended weight-bearing will be as tolerated with posterior hip precautions.
[2019-11-28] MEDS: Docusate CAP* 100 MG PO SCH (20:42)
--- NOTE | 2019-11-28 20:49 | CONS ---
HOSPITAL MEDICINE CONSULTATION REPORT: DATE OF CONSULT: 11/28/19 PROVIDER: Keila Carpio NP. ATTENDING PHYSICIAN WHILE IN THE HOSPITAL: Dr. Mariposa Hurd. CONSULTING PHYSICIAN: Dr. Sonia Taylor (dictated by Keila Carpio NP). REASON FOR CONSULT: Co-management of chronic medical conditions. HISTORY OF PRESENT ILLNESS: Mr. Mcfarlane is a 58-year-old male with past medical history significant for hypertension, hyperlipidemia, gout, and sleep apnea, who presented to [facility] for an elective left total hip arthroplasty with Dr. Hurd. Please see dictated H and P from JESSENIA Bass, for complete details. In brief, the patient had ongoing pain, failed conservative measures; therefore, opted to proceed with a left total hip arthroplasty with Dr. Hurd. In the immediate postoperative period, the patient has no complaints. He denies any recent illnesses. He denies any fever, chills, chest pain, shortness of breath. Denies any nausea, vomiting, diarrhea, or abdominal pain. He does complain of some mild pain to his left hip. Due to the patient's history of hypertension, hyperlipidemia, and sleep apnea, Hospital Medicine was asked to co-manage his care during this hospitalization. PAST MEDICAL HISTORY: Significant for: 1. Hypertension. 2. Hyperlipidemia. 3. Gout. 4. Sleep apnea. PAST SURGICAL HISTORY: 1. [place] teeth extraction. 2. Cataract removed. HOME MEDICATIONS: Include: 1. Fenofibrate 145 mg p.o. daily. 2. Magnesium oxide 400 mg p.o. daily. 3. Benicar HCT 20/12.5 half a tablet p.o. daily. 4. Metoprolol 50 mg p.o. daily. 5. Spironolactone 25 mg half a tablet p.o. daily. 6. Uloric 80 mg p.o. daily. 7. Fish oil 1000 mg p.o. daily. 8. Multivitamin 1 tablet p.o. daily. 9. Glucosamine 1500 mg p.o. daily. 10. Famotidine 20 mg p.o. daily. 11. Amlodipine 5 mg p.o. daily. ALLERGIES: No known drug allergies. FAMILY HISTORY: Father with a history of CABG, hypertension, at the age of 84. Mother with a history of hypertension, at the age of 79 from [place]. No reported history of diabetes or cancer in the family. SOCIAL HISTORY: The patient denies any smoking, illicit drug, or alcohol use. Surrogate decision maker in the event he is unable to make his own decisions is his or daughter. He is a full code. REVIEW OF SYSTEMS: An 11-point review of systems was completed. All pertinent positives were mentioned in the HPI. Otherwise were negative. PHYSICAL EXAM: General: At this time, Mr. Mcfarlane is alert and oriented, resting on his hospital bed in PACU. He is in no acute distress. Vital Signs: Blood pressure 118/70, heart rate 69, respirations 17, O2 saturation 96% on room air, temperature was 96.8. HEENT: Head is atraumatic, normocephalic. Eyes: EOMs are intact. Sclerae anicteric and not pale. Oral mucosa is moist. Neck is supple. Lungs are clear to auscultation bilaterally. No wheezes, rales, or rhonchi. Cardiac: S1, S2. Regular rate and rhythm. No murmurs, rubs , or gallops. Abdomen is soft and nontender. Bowel sounds are present x4. Extremities: He is able to move all 4 extremities. He does have a dressing that is dry and intact to his left hip. Pedal pulses are +2 bilaterally. Neurologic: He is awake, alert, oriented x3. Speech is clear. Thought process is intact. Cranial nerves II through XII are grossly intact. Skin: He does have a dressing that is dry and intact to his left hip. DIAGNOSTIC STUDIES/LAB DATA: Lab work from 11/17/19: WBCs 10.3, RBCs 4.40, hemoglobin 14.8, hematocrit was 42, platelet count was 218. INR 1.16 from 11/27. BMP from 11/17/19: Sodium 138, potassium 4.0, chloride 103, carbon dioxide was 25, anion gap of 10, BUN was 44, creatinine 1.35. Total bilirubin 0.50, AST was 20, ALT was 21, alkaline phosphatase was 57. Urine was within normal limits. IMPRESSION AND PLAN: Mr. Mcfarlane is a 58-year-old male with past medical history significant for hypertension, hyperlipidemia, gout, and sleep apnea, who presented to [facility] for an elective left total hip arthroplasty with Dr. Hurd. Our recommendations are as follows: 1. Status post left total hip arthroplasty. Management per Orthopedics. PT/ OT per Orthopedics. Bowel regimen per Orthopedics. Pain management per Orthopedics and DVT prophylaxis per Orthopedics. 2. Hypertension. I will hold his Aldactone, Benicar, and amlodipine. I will continue him on metoprolol with holding parameters for systolic blood pressure less than 110. 3. Hyperlipidemia. He should continue on fenofibrate as previously prescribed. 4. Gout. He should continue on Uloric 80 mg p.o. daily. 5. FEN: He can have a regular diet. 6. Code status: He is a full code. 7. DVT prophylaxis: As per Orthopedics. TIME SPENT: Time spent on this consultation was 45 minutes, greater than half that time was spent at the bedside reviewing events leading thus far to his hospitalization, performing physical exam, and reviewing my plan of care. I have discussed this with my attending Dr. Sonia Taylor; she is in agreement with my plan. KEILA CARPIO, ATIYA [id number]/CPS #: [id number] CARMINE
[2019-11-28] MEDS: Magnesium Hydroxide LIQ* 30 ML UDC PO SCH (20:55)
[2019-11-29] MEDS: ceFAZolin 1 GM ADVAN(*) 1 GM in NS 0.9% 50 ML* 50 ML IVPB SCH ×2 (00:54→09:12)
[2019-11-29] MEDS: oxyCODONE/Acetamin 5/325 MG* TAB PO PRN ×3 (01:03→12:11)
[2019-11-29] MEDS: Lactated Ringers 1000 ML Bag* 1,000 ML IV SCH (02:23)
[2019-11-29 07:18] LABS: Hematocrit 33 % (42-52); Hemoglobin 11.3 g/dL (14.0-18.0); Mean Platelet Volume 8.4 fL (7.4-10.4); Platelet Count 187 10^3/uL (150-450)
[2019-11-29 07:33] LABS: BUN/Creatinine Ratio 29.4 (8-20); Calcium 9.1 mg/dL (8.6-10.3); EGFR African American 83.5 (>60)
[2019-11-29] MEDS ORDERED: Metoprolol Succinate XL TAB* 50 MG PO SCH (09:00)
[2019-11-29] MEDS ORDERED: Vitamin THERAPEUTIC TAB PO SCH (09:00)
[2019-11-29] MEDS ORDERED: Febuxostat(NF) 40 MG TAB PO SCH (09:00)
[2019-11-29] MEDS ORDERED: Famotidine TAB* 20 MG PO SCH (09:00)
[2019-11-29] MEDS ORDERED: Apixaban* 2.5 MG TAB PO SCH (09:00)
[2019-11-29] MEDS ORDERED: Magnesium Oxide TAB* 400 MG PO SCH (09:00)
[2019-11-29] MEDS: Docusate CAP* 100 MG PO SCH (09:13)
[2019-11-29] MEDS: Magnesium Hydroxide LIQ* 30 ML UDC PO SCH (09:16)
--- NOTE | 2019-11-29 12:52 | DS ---
Orthopedic Discharge Summary - Discharge Summary Date of Admission:11/28/19 Date of Discharge: 11/29/19 Date of Surgery: 11/28/19 Attending Orthopedic Provider: Dr Hurd Pre-operative Diagnosis: left hip osteoarthritis Operative Procedure: left total hip replacement Disposition of Patient: home Home care vs Outpatient services: outpatient Condition of Patient: stable Pain medication RX at discharge: percocet 5/325 mg 1-2 tabs po q 4 hr mdd 10 DVT prophylaxis RX at discharge: eliquis 2.5 mg, po bid x 30 days post op History: RON NORIEGA is a 58 year old M with years of increasingly severe left hip pain. Patient has failed conservative management and has elected to undergo a left total hip replacement Hospital Course: RON was admitted to [facility] on 11/28/19. Patient underwent a left total hip replacement without complication followed by a brief recovery in PACU and transfer to the Short Stay Surgical Unit in stable condition. Our hospitalist service, physical therapy and occupational therapy also participated in this patients care. Post-op day 1: patient was alert and in no acute distress. Dressing was clean, dry and intact. Operative extremity dorsiflexion and plantarflexion intact, sensation intact to light touch distally , DP2+. Prior to dc: dressing was changed, incision was clean, dry and intact. Patient was deemed to be medically and orthopedically stable for discharge. Physical therapy goals were met. Home Medications Medication Instructions Recorded Confirmed Type Metoprolol Succinate [Toprol Xl] 50 mg PO QAM 10/08/15 11/28/19 History Spironolactone TAB* [Aldactone TAB 12.5 mg PO QAM 10/08/15 11/28/19 History 25 MG*] Amlodipine Besylate [Norvasc] 5 mg PO BEDTIME 11/17/19 11/28/19 History Famotidine TAB* [Pepcid 20 MG TAB*] 20 mg PO QAM 11/17/19 11/17/19 History Febuxostat [Uloric] 80 mg PO QAM 11/17/19 11/28/19 History Fenofibrate 145 mg PO QAM 11/17/19 11/28/19 History Glucosam/Chondr/Collagn/Hyalur 1 cap PO BID 11/17/19 11/28/19 History [Glucosamine & Chondroitin Cap] Magnesium Oxide TAB* [MagOx 400 400 mg PO QAM 11/17/19 11/28/19 History TAB*] Multivit-Min/Folic/Vit K/Lycop 1 tab PO QAM 11/17/19 11/28/19 History [One Daily Men's 50 Plus D3 Tab] Olmesartan/Hydrochlorothiazide 0.5 tab PO QAM 11/17/19 11/28/19 History [Benicar Hct 20-12.5 mg Tablet] [place]-3 Fatty Acids/Fish Oil [Fish 1,000 mg PO QAM 11/17/19 11/28/19 History Oil 1,000 mg Softgel] Acetaminophen TAB* [Tylenol TAB*] 650 mg PO Q8HR PRN tab 11/29/19 Rx Apixaban* [Eliquis*] 2.5 mg PO BID #60 tab 11/29/19 Rx Docusate CAP* [Colace Cap*] 100 mg PO BID PRN #50 cap 11/29/19 Rx Oxycodone HCl/Acetaminophen 2 tab PO Q4HR PRN #60 tablet MDD 10 11/29/19 Rx [Endocet 10-325 mg Tablet] oxyCODONE/Acetamin 5/325 MG* 1 tab PO Q4H PRN tab MDD 10 11/29/19 Rx [Percocet 5/325 TAB*] Discharge Instructions following Orthopedic Surgery: Activity: * Weight Bearing as tolerated * Continue physical therapy and occupational therapy exercises as shown * you have elected outpatient physical therapy, please start therapy as an outpatient right away. Hip replacements: Continue Hip Precautions- do not cross legs or bend greater than 90 degrees/squat Wound care: * OK to shower on post-op day 3, no bathing, swimming, or submerging wound. * Use gentle soap, pat dry. Cover with gauze, SHAHZAD wrap or tape. Call Orthopedic office for: * Increased drainage * Redness * Increased pain * Fever Go to ER with shortness of breath or chest pain. Diet: * Regular diet * Increase fluids and fiber to prevent constipation. * Continue to use stool softeners, call office if no bowel motion within 48 hours. Medications See Home Medication List in your packet for medications that you should take after discharge. DVT Prophylaxis: Eliquis Dosin.5 mg, 1 tab every 12 hours x 30 days. Increases bleeding tendency Pain Control: Percocet 5/325 mg 1 tab for moderate pain and 2 tabs for severe pain by mouth every 4 hours as needed. Maximum of 10 tabs per day. Hold for sedation , wean off as soon as pain allows Please note that Percocet contains Tylenol (acetaminophen). Maximum daily dose of Tylenol is 4000 mg from all sources. Antibiotics are required prior to any dental work. FOLLOW UP: Follow up with Dr. Nuñez] Within [10-14] days, call for appointment Please call our office with any questions or concerns ([phone]) [facility]
--- NOTE | 2019-11-29 12:55 | PN ---
Progress Note - Progress Note Date of Service: 11/29/19 Note: Pt seen at bedside POD 1 sp LT. He feels well without CP, SOB, dizziness or nausea. Has met PT goals and desires DC home. Thigh soft, df/pf intact, dp2+, sensation intact to light touch distally. Dressing changed, incision CDI. DC home today
[2019-11-29 14:51] VITALS: BP 120/62
== END 2019-11-29 14:30 | disposition home or self-care (01) | DRG 301 ==
LOC: AA 06:12 → SSU 11:04
PROVIDERS: ADMIT Orthopaedic Surgery Adult Reconstructive Orthopaedic Surgery; ATTEND Orthopaedic Surgery Adult Reconstructive Orthopaedic Surgery
PROC: 0SRB04A Replacement of Left Hip Joint with Ceramic on Polyethylene Synthetic Substitute, Uncemented, Open Approach (ICD-10-PCS; principal; 2019-11-28 08:00)
DX: M16.12 Unilateral primary osteoarthritis, left hip (principal); I10 Essential (primary) hypertension; E78.00 Pure hypercholesterolemia, unspecified; E78.5 Hyperlipidemia, unspecified; M10.9 Gout, unspecified; G47.30 Sleep apnea, unspecified; Z79.899 Other long term (current) drug therapy; Z82.49 Family history of ischemic heart disease and other diseases of the circulatory system
CPT/HCPCS: 36415; 72170; 80048; 85014; 85018; 85049; 85610; 85730; 88304; 88311; A9270-GY; C1713; C1776; J0690; J1100; J2250; J2405; J2704; J2795; J3010